=== PATIENT | female | born 1990 | race Caucasian/White ===

== ENCOUNTER 2020-09-24 14:27 | Emergency (ER) | payer OTHER ==
[~2020-09-24] VITALS: Ht 157.5 cm; Wt 99.8 kg
[2020-09-24] MEDS ORDERED: MEDROLDOSEPACK PO (16:24)
[2020-09-24 16:37] VITALS: BP 105/57
== END 2020-09-24 16:37 | disposition home or self-care (01) ==
LOC: ER 14:27
DX: T78.01XA Anaphylactic reaction due to peanuts, initial encounter (principal); J45.909 Unspecified asthma, uncomplicated; F17.210 Nicotine dependence, cigarettes, uncomplicated